=== PATIENT | female | born 1950 | race Caucasian/White ===

== ENCOUNTER 2025-02-16 22:41 | Inpatient (IN) | payer MEDICARE, SELFPAY ==
[2025-02-16] VITALS (14 sets, daily range): BP systolic 84–120; BP diastolic 37–63; BMI 37.5
[2025-02-16 16:54] LABS: Hematocrit 38.1 % (37.0-47.0); Hemoglobin 12.9 g/dL (12.0-16.0); Mean Corp Hgb Conc. 33.9 g/dL (33.0-37.0); Mean Corpuscular Volume 88.2 fL (81.0-99.0); Nucleated Red Blood Cells % 0 %; Platelet Count 291 10^3/uL (130-400); Red Cell Dist. Width 13.9 % (11.5-14.5)
[2025-02-16 17:08] LABS: ALT (SGPT) 25 U/L (0-35); AST (SGOT) 51 U/L (14-36); Albumin 4.2 g/dl (3.5-5.0); Alkaline Phosphatase 86 U/L (38-126); Blood Urea Nitrogen 19 mg/dl (7-17); Calcium 10.0 mg/dl (8.4-10.2); Carbon Dioxide 23 mmol/L (22-30); Chloride 103 mmol/L (98-107); Glucose 130 mg/dl (70-99); Potassium 3.5 mmol/L (3.5-5.1); Sodium 136 mmol/L (135-145); Total Protein 7.2 g/dl (6.3-8.2); eGFR 59.86
--- NOTE | 2025-02-16 17:20 | ED.GENMED ---
History of Present Illness
<Kendall Zheng PA-C - Last Filed: 02/16/25 23:28>
General
Chief Complaint: Weakness
Time Seen by Provider: 02/16/25 17:08
History of Present Illness
History of Present Illness:
74-year-old female with history of hyperlipidemia and Minor's thyroiditis presents to the emergency department for evaluation of severe weakness and urinary incontinence that began earlier this morning. States that she was unable to get herself
up off the floor for approximately 1 to 2 hours which resulted in her calling 911. She denies fevers but does have chills. She also reports right lower quadrant pain that began yesterday and worsened today. Denies nausea, vomiting, diarrhea,
coughing, or sore throat. No ill contacts at home. Prior abdominal surgical history includes appendectomy, cholecystectomy, total hysterectomy with hernia repair, and paraesophageal hernia repair
Past History
<Kendall Zheng PA-C - Last Filed: 02/16/25 23:28>
Past History
ED Past Medical History: HTN (HCTZ for edema)
ED Past Surgical History: Negative Cardiac
Social History
Tobacco: Non-smoker
Alcohol: None
Drug: None
Personal:
Living: with family
Employment: Employed
Family History
Family History: Other (Noncontributory)
Review of Systems
<Kendall Zheng PA-C - Last Filed: 02/16/25 23:28>
Review of Systems
Allergies reviewed?: Yes
All Other Systems: ROS reviewed and negative except as documented in HPI and ROS
Phy Exam
<Kendall Zheng PA-C - Last Filed: 02/16/25 23:28>
Physical Exam
Physical Exam:
GEN: Appears ill but in no distress
HEENT: Oral mucosa moist, no scleral icterus
Cardiac: Regular rate and rhythm, no murmur
Lung: No respiratory distress, no tachypnea, lungs clear to auscultation
Abdomen: Soft, significant right lower quadrant tenderness with no peritoneal signs or rigidity
MSK: No gross deformity or injuries
Skin: Good color, no pallor or jaundice, no rashes
Neuro: AO x3, moves all extremities freely
Psych: Calm, cooperative
Sepsis
<Kendall Zheng PA-C - Last Filed: 02/16/25 23:28>
Sepsis Screening
Sepsis Assessment: Septic Shock
Sepsis Screening: Lactate >/=4mmol/L
Sepsis Screen
Sepsis Screen: Septic Shock
Date: 02/16/25
Time: 16:50
Course
<Kendall Zheng PA-C - Last Filed: 02/16/25 23:28>
Orders/Labs/Results
Orders:
Orders
02/16/25 Breakfast
NPO
Allow oral meds: Yes
Allow clear liquids: 4hrs prior to procedure
NPO with Ice Chips: Yes
Comment: may have unrestricted clear liquid up to 4 hrs prior to scheduled procedure
02/16/25 16:40
ECG [Electrocardiogram (*1)] Urgent
Reason for Study: Fatigue / Weakness
02/16/25 16:47
Complete Blood Count/With Diff Urgent
Comprehensive Metabolic Panel Urgent
Creatine Phosphokinase Urgent
Erythrocyte Sed Rate Urgent
Lactic Acid Urgent
Blood Culture Urgent
BRENNEN Source: Blood/Venous
Specimen Description:
02/16/25 17:18
CT Abd/Pel (IV only)-DH only Urgent
Comment:
Reason For Exam: RLQ pain, sepsis
Straight cath- Treatment ONCE
02/16/25 17:19
0.9% Sodium Chloride 1000 ml [Nss] 2,600 ml IV BOLUS
02/16/25 18:23
COVID-19 Antigen Urgent
Source: Nasal Swab
Urinalysis Reflex To Culture Urgent
Date Specimen was Collected: 02/16/25
Time Specimen was Collected: 17:34
Urine Microscopic Reflex Cult Urgent
Blood Culture Urgent
BRENNEN Source: Blood/Venous
Specimen Description:
Influenza A+B Rapid Molecular Urgent
BRENNEN Source: Nasal Swab
Specimen Description:
Urine Culture Urgent
BRENNEN Source: U
Specimen Description:
Date Specimen was Collected: 02/16/25
Time Specimen was Collected: 17:34
02/16/25 18:42
CefTRIAXone [Rocephin] 1,000 mg IV NOW STA
02/16/25 22:25
Morphine Sulfate 2 mg IV NOW STA
02/16/25 22:28
Admit/Transfer Patient As Directed
Co-Sign Provider:
Level of Care: Inpatient admission
Assign to:: IMU- Intermediate Care
Physician / Group: Htay
Diagnosis: Sepsis, Pyelonephritis
Reason for Hospitalization: IVFs, IV abx, possible pressors
Expected length of stay greater than two midnights?: Yes
ELOS- Estimated Length of Stay in days: 3
I certify the patient meets the requirements for IP care: Yes
02/16/25 22:29
PRN Pain Medication Management As Directed
May give lesser potent ordered pain med per pt: Yes
preference::
Protocol:: Medication orders for pain may be administered in a
manner that supports deferring to patient preference
when the pt is:
- Requesting an ordered lesser potent pain medication.
Least to most potent pain medications are defined
as: acetaminophen < NSAID < tramadol < opioids
(morphine, oxycodone, hydromorphone).
- Requesting a lesser dose of the same medication IF
ORDERED.
- Requesting a less intrusive route of administration
if both routes are prescribed by the provider (PO <
IV).
02/16/25 22:30
Code Status As Directed
Resuscitation Status: Full Code
0.9% Sodium Chloride 1000 ml [Nss] 1,000 ml IV 120 mls/hr
02/16/25 22:45
Lactic Acid Stat
02/16/25 23:16
Acetaminophen [Tylenol] 650 mg PO Q4HPRN PRN
Morphine Sulfate 2 mg IV Q4HPRN PRN
Ondansetron Injectable [Zofran] 4 mg IV Q6HPRN PRN
02/16/25 23:16
UROLOGY CONSULT Routine
Consulting Provider: Elver Lanier
Was physician already notified: Yes
Activity As Directed
Activity Level: Out of Bed-Early Mobility
With Assistance
Bladder Scan As Directed
Follow Bladder Retention/Intermittent Cath Algorithm?: Yes
PRN if no void in __ hours: 6
Frequency: Per Retention Algorithm
If Bladder Scan Result >: 400
then:: Straight cath
I&O [Intake/ Output] As Directed
Frequency: q12h
Pneumatic Compression Sleeves As Directed
Type: Knee high
Straight Cath As Directed
Frequency: Per Retention Algorithm
Additional Instructions: straight cath as needed per acute urinary retention algorithm for 24 hrs
Additional Instructions: for bladder scan greater than 400 mL
Strain Urine As Directed
Vital Signs As Directed
Frequency: Per unit guidelines
DX Deep Vein Thrombosis Video Routine
02/17/25 02:30
Lactic Acid Q4H
Comment: repeat q4 hours x 4 or until less than 2 mmol/L
02/17/25 06:00
Basic Metabolic Panel IN AM
Complete Blood Count/No Diff IN AM
Levothyroxine [Synthroid] 100 mcg PO DAILY@0600
02/17/25 06:30
Lactic Acid Q4H
Comment: repeat q4 hours x 4 or until less than 2 mmol/L
02/17/25 08:00
Gabapentin [Neurontin] 300 mg PO QID
02/17/25 16:00
CefTRIAXone [Rocephin] 1,000 mg IV Q24H
02/17/25 18:00
Rosuvastatin Calcium [Crestor] 5 mg PO QPM
Abnormal Lab Results
02/16/25 02/16/25
16:47 18:23
WBC 21.2 H 10^3/uL
(4.8-10.8)
MPV 11.1 H fL
(7.4-10.4)
Abs Immat Gran (auto) 0.1 H 10^3/uL
(0-0.05)
Absolute Neuts (auto) 18.8 H 10^3/uL
(1.4-6.5)
Absolute Lymphs (auto) 0.8 L 10^3/uL
(1.2-3.4)
Absolute Monos (auto) 1.5 H 10^3/uL
(0.1-0.6)
Immature Gran % 0.7 H %
(0-0.5)
Neutrophils % 88.4 H %
(42.2-75.2)
Lymphocytes % 3.6 L %
(20.5-51.1)
BUN 19 H mg/dl
(7-17)
Glucose 130 H mg/dl
(70-99)
Lactic Acid 4.3 H* mmol/L
(0.7-2.0)
AST 51 H U/L
(14-36)
Urine Ketones 3+ A
(Negative)
Ur Occult Blood Reflex 3+ A
(Negative)
Leukocyte Esterase Rfl 3+ A
(Negative)
Urine RBC 3-6 A /HPF
(0-2)
Urine WBC (Reflex) 50-60 A /HPF
(0-5)
Urine Bacteria (Reflex) Many A
(Negative)
Urine Albumin (Reflex) 3+ A
(Neg - Trace)
02/16/25 16:47
02/16/25 16:47
Vital Signs
Initial and Last Documented VS:
Initial Vital Signs
Temp Pulse Resp BP Pulse Ox
98.0 F 105 20 84/63 92
02/16/25 16:38 02/16/25 16:38 02/16/25 16:38 02/16/25 16:38 02/16/25 16:38
Last Documented Vital Signs
Temp Pulse Resp BP Pulse Ox
99 F 75 11 108/43 100
02/16/25 23:01 02/16/25 23:00 02/16/25 23:00 02/16/25 22:41 02/16/25 19:45
<Magdaleno Starr, DO - Last Filed: 02/16/25 21:09>
Orders/Labs/Results
Orders:
Orders
02/16/25 Breakfast
NPO
Allow oral meds: Yes
Allow clear liquids: 4hrs prior to procedure
NPO with Ice Chips: Yes
Comment: may have unrestricted clear liquid up to 4 hrs prior to scheduled procedure
02/16/25 16:40
ECG [Electrocardiogram (*1)] Urgent
Reason for Study: Fatigue / Weakness
02/16/25 16:47
Complete Blood Count/With Diff Urgent
Comprehensive Metabolic Panel Urgent
Creatine Phosphokinase Urgent
Erythrocyte Sed Rate Urgent
Lactic Acid Urgent
Blood Culture Urgent
BRENNEN Source: Blood/Venous
Specimen Description:
02/16/25 17:18
CT Abd/Pel (IV only)-DH only Urgent
Comment:
Reason For Exam: RLQ pain, sepsis
Straight cath- Treatment ONCE
02/16/25 17:19
0.9% Sodium Chloride 1000 ml [Nss] 2,600 ml IV BOLUS
02/16/25 18:23
COVID-19 Antigen Urgent
Source: Nasal Swab
Urinalysis Reflex To Culture Urgent
Date Specimen was Collected: 02/16/25
Time Specimen was Collected: 17:34
Urine Microscopic Reflex Cult Urgent
Blood Culture Urgent
BRENNEN Source: Blood/Venous
Specimen Description:
Influenza A+B Rapid Molecular Urgent
BRENNEN Source: Nasal Swab
Specimen Description:
Urine Culture Urgent
BRENNEN Source: U
Specimen Description:
Date Specimen was Collected: 02/16/25
Time Specimen was Collected: 17:34
02/16/25 18:42
CefTRIAXone [Rocephin] 1,000 mg IV NOW STA
02/16/25 22:25
Morphine Sulfate 2 mg IV NOW STA
02/16/25 22:28
Admit/Transfer Patient As Directed
Co-Sign Provider:
Level of Care: Inpatient admission
Assign to:: IMU- Intermediate Care
Physician / Group: Htay
Diagnosis: Sepsis, Pyelonephritis
Reason for Hospitalization: IVFs, IV abx, possible pressors
Expected length of stay greater than two midnights?: Yes
ELOS- Estimated Length of Stay in days: 3
I certify the patient meets the requirements for IP care: Yes
02/16/25 22:29
PRN Pain Medication Management As Directed
May give lesser potent ordered pain med per pt: Yes
preference::
Protocol:: Medication orders for pain may be administered in a
manner that supports deferring to patient preference
when the pt is:
- Requesting an ordered lesser potent pain medication.
Least to most potent pain medications are defined
as: acetaminophen < NSAID < tramadol < opioids
(morphine, oxycodone, hydromorphone).
- Requesting a lesser dose of the same medication IF
ORDERED.
- Requesting a less intrusive route of administration
if both routes are prescribed by the provider (PO <
IV).
02/16/25 22:30
Code Status As Directed
Resuscitation Status: Full Code
0.9% Sodium Chloride 1000 ml [Nss] 1,000 ml IV 120 mls/hr
02/16/25 22:45
Lactic Acid Stat
02/16/25 23:16
Acetaminophen [Tylenol] 650 mg PO Q4HPRN PRN
Morphine Sulfate 2 mg IV Q4HPRN PRN
Ondansetron Injectable [Zofran] 4 mg IV Q6HPRN PRN
02/16/25 23:16
UROLOGY CONSULT Routine
Consulting Provider: Elver Lanier
Was physician already notified: Yes
Activity As Directed
Activity Level: Out of Bed-Early Mobility
With Assistance
Bladder Scan As Directed
Follow Bladder Retention/Intermittent Cath Algorithm?: Yes
PRN if no void in __ hours: 6
Frequency: Per Retention Algorithm
If Bladder Scan Result >: 400
then:: Straight cath
I&O [Intake/ Output] As Directed
Frequency: q12h
Pneumatic Compression Sleeves As Directed
Type: Knee high
Straight Cath As Directed
Frequency: Per Retention Algorithm
Additional Instructions: straight cath as needed per acute urinary retention algorithm for 24 hrs
Additional Instructions: for bladder scan greater than 400 mL
Strain Urine As Directed
Vital Signs As Directed
Frequency: Per unit guidelines
DX Deep Vein Thrombosis Video Routine
02/17/25 02:30
Lactic Acid Q4H
Comment: repeat q4 hours x 4 or until less than 2 mmol/L
02/17/25 06:00
Basic Metabolic Panel IN AM
Complete Blood Count/No Diff IN AM
Levothyroxine [Synthroid] 100 mcg PO DAILY@0600
02/17/25 06:30
Lactic Acid Q4H
Comment: repeat q4 hours x 4 or until less than 2 mmol/L
02/17/25 08:00
Gabapentin [Neurontin] 300 mg PO QID
02/17/25 16:00
CefTRIAXone [Rocephin] 1,000 mg IV Q24H
02/17/25 18:00
Rosuvastatin Calcium [Crestor] 5 mg PO QPM
Abnormal Lab Results
02/16/25 02/16/25
16:47 18:23
WBC 21.2 H 10^3/uL
(4.8-10.8)
MPV 11.1 H fL
(7.4-10.4)
Abs Immat Gran (auto) 0.1 H 10^3/uL
(0-0.05)
Absolute Neuts (auto) 18.8 H 10^3/uL
(1.4-6.5)
Absolute Lymphs (auto) 0.8 L 10^3/uL
(1.2-3.4)
Absolute Monos (auto) 1.5 H 10^3/uL
(0.1-0.6)
Immature Gran % 0.7 H %
(0-0.5)
Neutrophils % 88.4 H %
(42.2-75.2)
Lymphocytes % 3.6 L %
(20.5-51.1)
BUN 19 H mg/dl
(7-17)
Glucose 130 H mg/dl
(70-99)
Lactic Acid 4.3 H* mmol/L
(0.7-2.0)
AST 51 H U/L
(14-36)
Urine Ketones 3+ A
(Negative)
Ur Occult Blood Reflex 3+ A
(Negative)
Leukocyte Esterase Rfl 3+ A
(Negative)
Urine RBC 3-6 A /HPF
(0-2)
Urine WBC (Reflex) 50-60 A /HPF
(0-5)
Urine Bacteria (Reflex) Many A
(Negative)
Urine Albumin (Reflex) 3+ A
(Neg - Trace)
02/16/25 16:47
02/16/25 16:47
Vital Signs
Initial and Last Documented VS:
Initial Vital Signs
Temp Pulse Resp BP Pulse Ox
98.0 F 105 20 84/63 92
02/16/25 16:38 02/16/25 16:38 02/16/25 16:38 02/16/25 16:38 02/16/25 16:38
Last Documented Vital Signs
Temp Pulse Resp BP Pulse Ox
99 F 75 11 108/43 100
02/16/25 23:01 02/16/25 23:00 02/16/25 23:00 02/16/25 22:41 02/16/25 19:45
<Kendall Zheng PA-C - Last Filed: 02/16/25 23:28>
MDM/Problems Addressed
MDM/Problems Addressed:
Imaging does reveal bilateral UPJ stones however these are nonobstructing. I did discuss this with urology on-call who will see in consultation in the morning but no indication for stent placement. Patient clinically improved after IV fluid
resuscitation and IV antibiotics. Will be admitted due to septic shock with lactic acidosis due to UTI
<Kendall Zheng PA-C - Last Filed: 02/16/25 23:28>
Comment
Comment:
EKG independently interpreted by me shows normal sinus rhythm at a rate of [address] changes concerning for ischemia
*Pulse Oximetry
SaO2: 92
Oxygen Mode of Delivery: Room air
Patient hypoxic: no
*Critical Care Note
Total Time (30-74mins, 75-104mins- exclusive of procedures): 40 minutes
comment:
Critical care time: 40 minutes
Critical care time was exclusive of: Separately billable procedures, treating other patients, and teaching time
Critical care was necessary to treat or prevent imminent or life-threatening deterioration of the following conditions: Septic shock
Critical care time spent personally by me on the following activities:
[x] Review of old charts
[x]Obtaining history from patient or surrogate
[x] Ordering and review of the laboratory studies
[x] Ordering and review of radiographic studies
[x] Ordering and performing treatments and interventions
[x] Patient patient's response to treatment
[x] Development of treatment plan with patient or surrogate
ED Attending Note
<Kendall Zheng PA-C - Last Filed: 02/16/25 23:28>
-
Portions of this chart may have been created with voice recognition software.� Occasional wrong word or��sound alike� substitutions may have occurred due to the inherent limitations of voice recognition software.
<Magdaleno Starr DO - Last Filed: 02/16/25 21:09>
ED Attending Note
Patient seen and examined by attending physician: Yes
I performed the substantive portion of visit, reviewed & personally made and approve the management plan that is documented in note by myself or SUMEET.: Yes
ED Attending Note:
I evaluated the patient at bedside. The patient does report some abdominal discomfort on the right side and does have some abdominal tenderness on examination. CT currently pending. Leukocytosis is noted and she is tachycardic with lactic of 4.3.
IV fluids have been ordered. She currently has appropriate mental and is fairly well appearing.
Discharge Plan
Departure
Patient Disposition: Admit
Date of Disposition: 02/16/25
Time of Disposition: 21:26
Admit to: Med/Surg
Presentation/result/management discussed w/ accepting MD/DO: Hospitalist
Discharge Problem:
Acute pyelonephritis
Interventions
Interventions:
*Risk Screen - Suicide Last Done: 02/16/25 17:18
*General Assessment Last Done: 02/16/25 16:38
*Neglect/Abuse Screening Last Done: 02/16/25 17:18
*ED- Fall Risk Assessment Last Done: 02/16/25 17:18
ED- Cardiac Assessment Last Done: 02/16/25 17:18
ED- Neurological Assessment Last Done: 02/16/25 17:18
ED- Pulmonary Assessment Last Done: 02/16/25 17:18
[2025-02-16] MEDS: NSS 2600 IV (17:51)
[2025-02-16 18:37] LABS: Urine Character Slightly Cloudy (Clear)
[2025-02-16 18:49] LABS: Urine White Cell 50-60 /HPF (0-5)
[2025-02-16 18:57] LABS: COVID-19 Antigen Negative (Negative)
[2025-02-16] MEDS: ROCEPHIN 1000 MG IV (19:16)
--- NOTE | 2025-02-16 22:07 | HPS.HSE ---
Family Physician
-
Family Physician: Wally Farley
Chief Complaint
-
Weakness, Urinary Incontinence and Right Flank/Abdominal Pain
History of Present Illness
Patient is a 74 y/o female past medical history of hypertension, hyperlipidemia, thyroidism, chronic lower extremity edema, spinal stenosis and peripheral neuropathy who presents with weakness and urinary incontinence. Patient reports since this
lower morning she has felt extremely weak. She reports associated urinary incontinence which is not her normal. She reports right flank pain as well as right lower quadrant pain . She denies dysuria or hematuria. She denies fevers.
Medical History
Past Medical History
Past Medical History: Reports Other
Additional Past Medical History:
Minor's Thyroiditis
Essential Hypertension
Hyperlipidemia
Chronic Lower Extremity Edema
Spinal Stenosis
Peripheral Neuropathy
Past Surgical History: Reports Other
Additional Past Surgical History:
1956 tonsillectomy
1961 appendectomy
1983 D&C, cholecystectomy, abdominal exploratory for suspected peritonitis
1985 D&C
1992 RIGHT KNEE AND ANKLE ARTHROSCOPY
1993 RIGHT ankle reconstruction
1995 uterine fibroids /adhesions removed, C5-6 CERVICAL FUSION W/ BONE GRAFT
; right ankle arthroplasty, torn ligaments repair, reconstruction
1999 ankle broken and repair w/ pins & wires (pins later removed), removed neuroma left foot
2002 hysteroscopy/ laparotomy/d&C
2003 broke left ankle-3 places
2003 total hysterectomy including ovaries, hernia repair
2004 broke left ankle, hernia repair x2, bladder sling,
2005 left foot neuroma and none chips removed, additional left ankle joint clean up, left ankle severe sprain/hairline fracture
2007 LEFT FOOT BROKE, left arm /wrist distal breaks
2009 surgery to correct 3 external fixators; fixators later removed
2010 stress fracture of tibia and ton ligaments of right ankle
2011 Carpal tunnel release, right distal fibula fx,
2018 endoscopy, hernia repair
2020 - lap/robotic paraesophageal hernia repair
Social History
Tobacco: Non-smoker
Alcohol: Occasional (Few time a month)
Family History
Family History: Not pertinent
Allergies / Home Medications
Allergies reflects when Allergies were last updated in [facility].
Home Medications with original date entered in [facility]
Allergy/Medication List:
Allergies
Allergy/AdvReac Type Severity Reaction Status Date / Time
codeine Allergy Large Verified 02/16/25 16:38
Hives - ok
w/
oxycodone/hydrocodone
hydromorphone (From Dilaudid) Allergy makes Verified 02/16/25 16:38
hyper,
very
angry/upset,
and crazy,
confused
Penicillins Allergy Large Verified 02/16/25 16:38
Hives - as
a child
Home Medications
cetirizine 10 mg tablet 10 mg PO DAILY Allergies 03/14/19
ferrous sulfate 325 mg (65 mg iron) tablet (FeroSul) 325 mg PO MOFR Supplement 03/14/19
gabapentin 300 mg capsule 300 mg PO QID Neurological Condition 03/14/19
hydrochlorothiazide 25 mg tablet 25 mg PO DAILY Blood pressure 03/14/19
levothyroxine 100 mcg tablet 100 mcg PO DAILY AT 0700 Thyroid 03/14/19
rosuvastatin 5 mg tablet 5 mg PO QPM High cholesterol 10/13/19
glucosamine sulfate 500 mg tablet 500 mg PO DAILY Supplement 02/16/25
losartan 50 mg tablet 50 mg PO DAILY Blood Pressure 02/16/25
therapeutic multivitamin 1 tab PO DAILY Supplement 02/16/25
Review of Systems
-
A 12 point ROS was completed and negative except as noted: Yes
Constitutional: Denies Fever or Chills
Respiratory: Reports Trouble Breathing; Denies Cough
Cardiac: Denies Chest Pain or Palpitations
: Reports See HPI
Physical Exam
Vital Signs
Vital Signs
Temp Pulse Resp BP Pulse Ox
98.0 F 82 19 109/49 100
02/16/25 16:38 02/16/25 21:47 02/16/25 21:47 02/16/25 21:47 02/16/25 19:45
Physical Exam
General: Well Developed, Well Nourished and No Apparent Distress
HEENT: NormoCephalic, Anicteric, Moist mucous membranes and Atraumatic
Respiratory: Clear and Non Labored Respirations; No Wheezes, Rales or Rhonchi
Cardiac: S1/S2 and Regular Rhythm; No Murmur
GI: Soft and Tender (Right lower qquadrant)
Rectal: Deferred by Provider
Genito-urinary: Other (Positive right CVA tenderness)
Musculoskeletal: No Clubbing, No Cyanosis and No Edema
Skin: Warm and Dry; No Rash
Neuro: Awake, Alert, Oriented and Nonfocal/grossly intact
Psych: Calm
Laboratory Results
-
02/16/25 16:47
02/16/25 16:47
Laboratory Results
Lactic Acid 4.3 mmol/L (0.7-2.0) H* 02/16/25 16:47
Total Bilirubin 1.0 mg/dl (0.2-1.3) 02/16/25 16:47
AST 51 U/L (14-36) H 02/16/25 16:47
ALT 25 U/L (0-35) 02/16/25 16:47
Alkaline Phosphatase 86 U/L (38-126) 02/16/25 16:47
Abd/Pelvis CT Scan:
Small calculi at the bilateral ureteropelvic junctions. However, both appear to be nonobstructive with normal excretion of contrast into the bilateral ureters. Mild perinephric fat stranding, right greater than left. No definite striated
hypoenhancement to confirm pyelonephritis, but clinical correlation is recommended.
Data Reviewed
-
CT Scan: Report Reviewed by me
Lab Data: Labs Reviewed by me
Impression/Plan
-
Sepsis with lactic acidosis secondary to pyelonephritis/complicated UTI
-Admit to IMU for possible pressors
-Continue to trend lactic acid level
-Continue IVFs
-Continue ceftriaxone
-Await urine and blood cultures
Bilateral UPJ Stones, non-obstructive per CT scan
-Consult Urology
-Strain urine
-Will keep NPO for now pending urology evaluation
Minor's Thyroiditis
-Continue levothyroxine
Essential Hypertension
-Hold losartan due to current low blood pressure
Hyperlipidemia
-Continue rosuvastatin
Chronic Lower Extremity Edema
-Hold HCTZ
Spinal Stenosis / Peripheral Neuropathy
-Continue gabapentin
DVT proph: SCDs
Code Status: Full Code
--- NOTE | 2025-02-16 22:30 | W.PN.UPDATE ---
Update Note
Progress Note Update
This note serves as an addendum to the H&P by research program assistant Lucy DOWNS
HPI�
74M
PHX: hyperlipidemia and Minor's thyroiditis
Seen at ER:
- evaluation of severe weakness and urinary incontinence that began earlier this morning.
- she was unable to get herself up off the floor for approximately 1 to 2 hours which resulted in her calling 911.
- right lower quadrant pain that began yesterday and worsened today.
ROS
denies fevers but does have chills.
denies nausea, vomiting
Reviewed VS:
Temp Pulse Resp BP Pulse Ox
98.0 F 82 19 109/49 100
02/16/25 16:38 02/16/25 21:47 02/16/25 21:47 02/16/25 21:47 02/16/25 19:45
02/16/25
16:38 02/16/25
17:16
Blood pressure 84/63 119/47
PE
Gen: not toxic looking but tired and weak
HEENT: anicteric
Neck: supple
Lungs: CTA
Cor:RRR No ST
Suprapubic discomfort
: R CVA tenderness
CEO: AAO3
Relevant Data�
02/16/25
16:47
WBC 21.2 H
Immature Gran % 0.7 H
Neutrophils % 88.4 H
BUN 19 H
Creatinine 1.0
eGFR 59.86
Glucose 130 H
Lactic Acid 4.3 H*
Total Bilirubin 1.0
UA
02/16/25
18:23
Urine Clarity Slightly cloudy
Urine RBC 3-6 A
Urine WBC (Reflex) 50-60 A
Ur Squamous Epith Cells 11-15
Urine Bacteria (Reflex) Many A
SARS-CoV-2 Antigen Negative
BCx x 2 sent
EKG
NORMAL SINUS RHYTHM
INFERIOR INFARCT , AGE UNDETERMINED
ABNORMAL ECG
WHEN COMPARED WITH ECG OF 15-Oct-2019 06:08,
INFERIOR INFARCT IS NOW PRESENT
CT AP IV cont
- Small calculi at the bilateral ureteropelvic junctions.
- However, both appear to be nonobstructive with normal excretion of contrast into the bilateral ureters.
- Mild perinephric fat stranding, right greater than left.
- No definite striated hypoenhancement to confirm pyelonephritis, but clinical correlation is recommended.
ASSESSMENT & PLAN
Complicated UTI concern for R sided PN
Associated Sepsis ( LA 4.1) due to complicated UTI
Hypotension somewhat MAP > 65 after septic fluid NS 2.5
- Small calculi at the bilateral UPJ - non obstructive with normal excretion of contrast into the bilateral ureters.
- Mild perinephric fat stranding, right greater than lef
- BC x2 pending
- NPO p MN in case urology procedure is warranted
- Agree with IC CFTZ
- IV NS @ 120
- Morphing PRN analgesia
- PRN anti emetics
- Uro consulted
Mildly hypotensive due to sepsis
pHTN
- Hold Losartan
DVT Px: SCD
Full code
IMU
[2025-02-16] MEDS: MORPHINE SULFATE 2 MG IV (22:54)
[2025-02-16] MEDS: NSS 1000 IV (22:54)
[2025-02-17] VITALS (17 sets, daily range): BP systolic 94–131; BP diastolic 45–85
--- NOTE | 2025-02-17 01:26 | PTCARENOTE ---
assumed care of patient. pt is AAOx3, able to make needs known. VSS. 93% RA. c/o pain to right flank to right lower back, PRN pain meds given. pt was able to stand and pivot from the stretcher to the bed without issues, but does complain of slight
dizziness. per patient request because she used it the ER, PW in use. IV fluids infusing. NSR on the monitor. pt oriented to new room, call retana within reach, care ongoing.
[2025-02-17] MEDS: MORPHINE SULFATE 2 MG IV ×2 (05:04→09:16)
[2025-02-17] MEDS: SYNTHROID 100 MCG PO (05:04)
[2025-02-17] MEDS: NSS 1000 IV ×2 (05:05→17:19)
[2025-02-17 05:49] LABS: Hematocrit 31.1 % (37.0-47.0); Hemoglobin 10.1 g/dL (12.0-16.0); Mean Corp Hgb Conc. 32.5 g/dL (33.0-37.0); Mean Corpuscular Volume 91.5 fL (81.0-99.0); Platelet Count 207 10^3/uL (130-400); Red Cell Dist. Width 14.1 % (11.5-14.5)
[2025-02-17 06:22] LABS: Blood Urea Nitrogen 17 mg/dl (7-17); Calcium 8.2 mg/dl (8.4-10.2); Carbon Dioxide 26 mmol/L (22-30); Chloride 107 mmol/L (98-107); Estimated Creatinine Clearance 65 ml/min; Glucose 89 mg/dl (70-99); Potassium 3.4 mmol/L (3.5-5.1); Sodium 136 mmol/L (135-145); eGFR > 60.00
[2025-02-17] MEDS: NEURONTIN 300 MG PO ×4 (08:35→21:45)
--- NOTE | 2025-02-17 09:03 | W.PN.HOSP.TC ---
Today's Communication/Plan
-
Increase ceftriaxone to 2 g
Consult urology
Consult cardiology
Echocardiogram
Assessment / Plan
Assessment / Plan
Severe sepsis with lactic acidosis more than 4.0 secondary to right pyelonephritis/complicated UTI
-Hemodynamically stable. No fevers. Improving white count.
- Normalized lactic acid.
-Continue IVFs
-Continue ceftriaxone-increase the dose to 2 g
-Await urine and blood cultures
Bilateral UPJ Stones, non-obstructive per CT scan
- Will discuss with urology if any role for inpatient evaluation
-Strain urine
- Start on a diet
New onset of atrial fibrillation
Not in heart failure
Hemodynamically stable
Will give a as needed doses of p.o. Cardizem for now
Consult cardiology
Obtain echocardiogram
Hypokalemia-replete potassium
Minor's Thyroiditis
-Continue levothyroxine
Essential Hypertension
-Hold losartan due to current low blood pressure
Anemia-drop in H&H noted suspect hemodilution continue to follow.
Hyperlipidemia
-Continue rosuvastatin
Chronic Lower Extremity Edema
-Hold HCTZ
Spinal Stenosis / Peripheral Neuropathy
-Continue gabapentin
DVT proph: SCDs
Code Status: Full Code
Discussed with RN
Total time spent on today's encounter was 52 minutes which included time spent in counseling the patient/family regarding diagnosis and treatment plan as listed above, goals of care, and symptom management. Case was discussed with nursing staff,
specialists, and care coordinators/case management. All labs and imaging personally reviewed by me. Remainder the time spent in detailed review of previous records, lab data, imaging, and other medical provider documentation.
Anticipated Discharge: > 48 hours
Subjective/Interval History
-
Date of Service: February 17, 2025
Patient still with persistent right-sided abdominal pain and right flank pain.
Generally healthy lady.
Her symptoms were acute onset yesterday with abdominal pain on the right side with urinary incontinence.
She is now diagnosed with severe sepsis and right pyelo-. Denies prior history of UTIs or any recent changes with bladder function.
She also flipped into new A-fib. Denies any prior history of cardiac disease. No chest pain or shortness of breath or dizziness.
No nausea vomiting.
Objective Data
-
Labs:
Laboratory Results
02/17/25
05:01
WBC 14.9 H
Hgb 10.1 L D
Hct 31.1 L
Plt Count 207 D
Sodium 136
Potassium 3.4 L
Chloride 107
Carbon Dioxide 26
BUN 17
Creatinine 0.8
Glucose 89
Calcium 8.2 L D
Vital Signs:
Vital Signs
Temp Pulse Resp BP Pulse Ox
98.0 F 59 16 105/47 98
02/17/25 03:17 02/17/25 06:00 02/17/25 06:00 02/17/25 06:00 02/17/25 06:00
I&O
02/16/25 02/17/25 02/18/25
06:59 06:59 06:59
Intake Total 1120 / 1120
Balance 1120 / 1120
Physical Exam
-
General: No Apparent Distress
Respiratory: Clear to Auscultation and Non Labored Respirations; Negative Accessory Resp Muscle Use
Cardiac: S1/S2, Irregular Rhythm and Tachycardic
GI: Soft, Nondistended, Normal Bowel Sounds and Tender (Right upper quadrant and right middle quadrant)
Genito-urinary: Costovertebral Angle Tend (Right side)
Musculoskeletal: No Edema
Neuro: AO x 3
Psych: Calm
Data Reviewed
-
CT Scan: Report Reviewed by me (CT of the abdomen pelvis images)
Labs: Labs Reviewed by me
[2025-02-17] MEDS: TYLENOL 650 MG PO (09:15)
[2025-02-17] MEDS: CARDIZEM 30 MG PO (09:15)
[2025-02-17] MEDS: KCL 40 MEQ PO (09:15)
--- NOTE | 2025-02-17 09:31 | W.PN.URO.CBU ---
Today's Communication / Plan
-
to op room
Assessment / Plan
-
pt with bilateral stones and sepsis syndrome Discussed options. Pt and I agree for bilateral stent placement
Diagnosis
-
Date of Service: February 17, 2025
-
Patient Diagnosis:
rt pyelo with bilateral upj stones non obstructing and 21k wbc down to 15 k but rt colic
Post Op Day:
Subjective
-
feels poorly rigors no bladder pressure but rt colic
Objective
-
Vital Signs
Temp Pulse Resp BP Pulse Ox
100.3 F 125 16 107/85 98
02/17/25 07:00 02/17/25 09:15 02/17/25 06:00 02/17/25 09:15 02/17/25 06:00
Intake and Output
02/16/25 02/17/25 02/18/25
06:59 06:59 06:59
Intake Total 1120 / 1120
Balance 1120 / 1120
Intake:
Oral fluids 120 / 120
IV fluids (Total) 1000 / 1000
Other:
How many times incontinent 2
SATURATED amount urine
Laboratory Results
02/17/25 05:01
02/17/25 05:01
Review of Systems
-
Constitutional: Night Sweats and Chills
Abdomen/GI: Nausea
: Flank Pain and Incontinence
Physical Exam
-
General - well developed, well nourished, no acute distress
Chest - clear bilaterally
Abdomen - soft, non-tender, positive bowel sounds, no CVAT, no incisional pain or distention
Genitalia - normal
Rectal - normal
Skin - warm & dry with no rash
Neuro - AOx3, no motor deficits
Extremities - no clubbing, no cyanosis, no edema
Incision - clean, dry
Dressing - clean, dry, intact
Counseling
-
to op room
Care Review
Data Reviewed
Discussed with: Hospitalist and Nursing
CT Scan: Image Pers Reviewed
[2025-02-17 09:57] LABS: Magnesium 1.9 mg/dl (1.6-2.3)
--- NOTE | 2025-02-17 10:00 | PTCARENOTE ---
Patient AAOx3, c/o pain across back and R flank, see may. T 100.3 this AM, see may. Patient went into afib around 0730 and converted back to NSR around 0930. Asymptomatic, all other VSS, see may. Cardiology to see. Patient going for urinary stents
soon. Patient able to make needs known. Will closely monitor.
--- NOTE | 2025-02-17 10:26 | CON.CAR ---
Addendum entered and electronically signed by Dalton Hong MD 02/17/25 11:24:
I saw and evaluated the patient, and I provided the substantive portion of the medical decision making.
I reviewed and agree with the note by Ms Romero and it accurately reflects our care.
I personally performed the medical decision making of the this encounter and my assessment and plan is below:
AF RVR
- already self converted to NSR
- Eliquis when able
- Start metop 25 mg
- echo pending
Original Note:
Consultation
Consultation Request
Date/Time Consultation Requested: 02/17/2025 08:50
Date/Time Consultation Performed: 02/17/2025 10:30
Requesting Provider: Dr. Murillo
Performing Provider: NAMRATA Phelps for Dr. Hong
Reason for Consultation: Atrial fibrillation, new
Medical History
-
Chief Complaint: Weakness, urinary incontinence
History of Present Illness:
Ileana Vargas is a 74-year-old female with hypertension, dyslipidemia, Minor's thyroiditis, and DJD who presented to the emergency department last night with severe weakness. She endorsed associated urinary incontinence. She was unable to
get off the floor for 1 to 2 hours requiring her to call 911. She endorsed worsened right lower quadrant pain. She was admitted with sepsis in the setting of pyelonephritis/complicated UTI. Cardiology was consulted for paroxysmal atrial
fibrillation. She was in atrial fibrillation for about 2 hours. She was given diltiazem 30 mg. She is currently in sinus rhythm. She denied having any chest pain, shortness of breath, nor dizziness.
Past Medical History
Past Medical History: HTN, Hypercholesterolemia and Hypothyroidism
Past Surgical History: Appendectomy, Cholecystectomy, Gynecological (Total hysterectomy) and Orthopedic
Social History
Tobacco: Non-Smoker
Alcohol: Occasional
Employment: Retired
Family History
Family History: Reviewed & Not Pertinent
Allergies / Home Medications
Allergy/AdvReac Type Severity Reaction Status Date / Time
codeine Allergy Large Verified 02/16/25 16:38
Hives - ok
w/
oxycodone/hydrocodone
hydromorphone (From Dilaudid) Allergy makes Verified 02/16/25 16:38
hyper,
very
angry/upset,
and crazy,
confused
Penicillins Allergy Large Verified 02/16/25 16:38
Hives - as
a child
�Medication �Instructions �Recorded �Confirmed �Type
cetirizine 10 mg tablet 10 mg PO DAILY Allergies 03/14/19 02/16/25 History
ferrous sulfate 325 mg (65 mg 325 mg PO MOFR Supplement 03/14/19 02/16/25 History
iron) tablet (FeroSul)
gabapentin 300 mg capsule 300 mg PO QID Neurological 03/14/19 02/16/25 History
Condition
hydrochlorothiazide 25 mg tablet 25 mg PO DAILY Blood pressure 03/14/19 02/16/25 History
levothyroxine 100 mcg tablet 100 mcg PO DAILY AT 0700 Thyroid 03/14/19 02/16/25 History
rosuvastatin 5 mg tablet 5 mg PO QPM High cholesterol 10/13/19 02/16/25 History
glucosamine sulfate 500 mg tablet 500 mg PO DAILY Supplement 02/16/25 02/16/25 History
losartan 50 mg tablet 50 mg PO DAILY Blood Pressure 02/16/25 02/16/25 History
therapeutic multivitamin 1 tab PO DAILY Supplement 02/16/25 02/16/25 History
Review of Systems
-
History Source: Patient
All other systems: Negative unless noted
Constitutional: Fever and Fatigue
EENT: No Symptoms
Respiratory: No Symptoms
Cardiac: No Symptoms
Abdomen/GI: No Symptoms
: No Symptoms
Musculoskeletal: No Symptoms
Skin: No Symptoms
Neurological: No Symptoms
Endocrine: No Symptoms
Hematologic/Lymphatic: No Symptoms
Physical Exam
Vital Signs
Temp Pulse Resp BP Pulse Ox
100.3 F 125 16 107/85 98
02/17/25 07:00 02/17/25 09:15 02/17/25 06:00 02/17/25 09:15 02/17/25 06:00
Lab Results
02/17/25 05:01
02/17/25 05:01
Physical Exam
General: Well Developed, Well Nourished, No Apparent Distress and Comfortable
HEENT: Normocephalic, Anicteric and Moist Mucous Membranes
Respiratory: Clear and Non Labored Respirations
Cardiac: S1/S2 and Regular Rhythm; Negative Peripheral Edema
Breast: Deferred by me
GI: Soft, Non Tender, Non Distended and Normal Bowel Sounds
Rectal: Deferred by Provider
Genito-urinary: No Costovertebral Tender
Musculoskeletal: No Clubbing and No Cyanosis
Skin: Warm and Dry
Neuro: Awake and Alert
Hematologic/Lymphatic: No Lymphadenopathy
Psych: Calm
Impression / Plan
-
I/P: 74F with hypertension, dyslipidemia, Minor's thyroiditis, and DJD who presented to the emergency department last night with severe weakness. She endorsed associated urinary incontinence.
Outpatient decorator inspector: None
Severe sepsis in the setting of right pyelonephritis/complicated UTI
- Leukocytosis, lactic acidosis (4.3), and febrile
- On IV fluid, not requiring vasopressor support
- Cultures are pending, antibiotics per primary service
Paroxysmal atrial fibrillation
- Back in sinus rhythm, received diltiazem 30 mg x 1
- Oral Anticoagulation: None prior to arrival, hold initiation with UPJ stones, anticipate apixaban 5 mg twice daily
- [id number]: Score at least 3 (HTN, age 65-74, female gender)
- Outpatient JAYLEN eval
- Echocardiogram today
- TSH reflex to T4
Bilateral UPJ stones, urology following
Essential hypertension
- Losartan and HCTZ on hold in the setting of soft BP
Anemia, perhaps dilutional, no acute bleeding
Hypercholesterolemia, on rosuvastatin
Obesity, BMI 37, she would benefit from weight loss
Minor's thyroiditis, on levothyroxine
Data Reviewed
-
EKG: Report Reviewed by me
Radiology: Report Reviewed by me
Labs: Labs Reviewed by me
Old Records: Reviewed
--- NOTE | 2025-02-17 11:31 | W.IMMPOSTOP ---
Surgical Immed Post Op Note
-
Primary Surgeon:
lanette
Assisting Surgeon:
Pre-op Diagnosis:
UTI
bilateral ureteral stones
incontinence
Post-op Diagnosis:
same
Procedure Performed:
cysto, bilateral ureteral stent placement
Anesthesia Type:
gen
Specimen / Cultures:
none
Estimated Blood Loss:
1cc
Complications:
none
Operative Findings:
cystocele
no bladder mass/stone or fistula
bilateral stents placed- brown placed
to pacu in stable condition
--- NOTE | 2025-02-17 12:30 | PTCARENOTE ---
Received patient back from OR by bed. VSS. NSR. Patient with no pain. Upon prep for procedure OR staff noticed rash on patients chest, rash is on chest/abdomen and slightly on back of neck, patient with no discomfort, MD Murillo notified, antibiotics
switched. Patient awaiting lunch. Will closely monitor.
--- NOTE | 2025-02-17 16:55 | CM ---
I.A: Completed By COLUMBA Mustafa
Patient lives in a [address] with [address].
DME: None, and no VN/PT
PCP: Dr. Wally Farley
Pharmacy: [facility]
Patient has transport home when ready.
[2025-02-17] MEDS: CRESTOR 5 MG PO (17:18)
[2025-02-17] MEDS: LEVAQUIN 150 IV (17:18)
[2025-02-18] VITALS (10 sets, daily range): BP systolic 99–159; BP diastolic 47–74; PULSE 54; BMI 39.0
--- NOTE | 2025-02-18 01:04 | PTCARENOTE ---
Assumed care of Pt from day RN. Pt AAox3 able to make needs known. Pt has no complaints of pain at this time. Higgins in place, Pt appears to be tolerating well. Urine is mariann with redish clots and sediment. Vitals stable at this time. assessment
care as charted.
[2025-02-18] MEDS: NSS 1000 IV (02:53)
[2025-02-18] MEDS: TYLENOL 650 MG PO (03:11)
[2025-02-18] MEDS: ZOFRAN 4 MG IV (03:24)
[2025-02-18 04:04] LABS: Hematocrit 29.1 % (37.0-47.0); Hemoglobin 9.8 g/dL (12.0-16.0); Mean Corp Hgb Conc. 33.7 g/dL (33.0-37.0); Mean Corpuscular Volume 89.3 fL (81.0-99.0); Platelet Count 191 10^3/uL (130-400); Red Cell Dist. Width 13.9 % (11.5-14.5)
--- NOTE | 2025-02-18 04:21 | PTCARENOTE ---
Pt having some nausea over night,prn Zofran given. Pt having mild pain in right lower abd, prn Tylenol given. Pt HR becoming bradycardic at times into 40's. Pt asymptomatic, vitals stable at this time. SEISMIC COMPUTER made aware.
[2025-02-18] MEDS: SYNTHROID PO (07:00)
--- NOTE | 2025-02-18 08:41 | W.PN.URO.CBU ---
Today's Communication / Plan
-
remove brown please
Assessment / Plan
-
pt with bilateral stones and sepsis syndrome now s/p bilateral stents pt afebrile and hemodynamically stable ur cx pos for e coli blood cxs neg. Will remove brown and once medically stable may discharge on po abs. Pt aware to call
office to schedule definitive stone surgery
Diagnosis
-
Date of Service: February 18, 2025
-
Patient Diagnosis:
Post Op Day:
Patient Diagnosis:
rt pyelo with bilateral upj stones non obstructing and 21k wbc down to 12 today e coli in urine neg blood cxs
Post Op Day:
Subjective
-
improved no fever
Objective
-
Vital Signs
Temp Pulse Resp BP Pulse Ox
97.7 F 38 15 113/50 97
02/18/25 07:46 02/18/25 06:00 02/18/25 06:00 02/18/25 06:00 02/18/25 06:00
Intake and Output
02/17/25 02/18/25 02/19/25
06:59 06:59 06:59
Intake Total 1120 / 1120 1820 / 1820
Output Total 800 / 800
Balance 1120 / 1120 1020 / 1020
Intake:
Oral fluids 120 / 120 180 / 180
IV fluids (Total) 1000 / 1000 1640 / 1640
Normosal 200 / 200
Output:
Urine, Brown 800 / 800
Other:
How many times incontinent 2
SATURATED amount urine
Laboratory Results
02/18/25 03:20
02/17/25 05:01
Review of Systems
-
: Difficulty Voiding
Physical Exam
-
General - well developed, well nourished, no acute distress
Chest - clear bilaterally
Abdomen - soft, non-tender, positive bowel sounds, no CVAT, no incisional pain or distention
Genitalia - normal
Rectal - normal
Skin - warm & dry with no rash
Neuro - AOx3, no motor deficits
Extremities - no clubbing, no cyanosis, no edema
Incision - clean, dry
Dressing - clean, dry, intact
Counseling
-
remove brown please
Care Review
Data Reviewed
Discussed with: Nursing
CT Scan: Image Pers Reviewed
[2025-02-18] MEDS: NEURONTIN 300 MG PO ×4 (08:58→21:20)
--- NOTE | 2025-02-18 09:42 | W.PN.CD ---
Today's Communication / Plan
-
Start apixaban 5 mg twice daily when ok with medicine/urology
- Plan for at least 1 month and perhaps longer of Eliquis
Echocardiogram to be done today, review when available
She should see Dr. Hong in the office in 1 month
Cardiology will sign off
Impression / Plan
-
Background: 74F with hypertension, dyslipidemia, Minor's thyroiditis, and DJD who presented to the emergency department last night with severe weakness. She endorsed associated urinary incontinence. Found to have nephrolithiasis and
pyelonephritis. PAF with RVR noted.
Outpatient overhauler helper: None
Paroxysmal atrial fibrillation with RVR x1 => no awareness of AFib
- Rhythm: Still in sinus
- Oral Anticoagulation: None prior to arrival, hold initiation with UPJ stones, anticipate apixaban 5 mg twice daily for at least 1 month and perhaps longer
- [id number]: Score at least 3 (HTN, age 65-74, female gender)
- Outpatient JAYLEN eval
- Echocardiogram to be done today
- TSH => Normal
Abnormal EKG
- Criteria for IMI on ekg, will see what echo shows
- Dr. Hong may consider outpatient stress testing
Asymptomatic sinus bradycardia overnight and in 50s now
- I reviewed sinus and symptoms of bradycardia
- Observe
- No current indications for cardiac pacing
Right pyelonephritis/nephrolithiasis/complicated UTI
- IV ATBs
- Bilateral ureteral stents
- Per medicine and urology
Essential hypertension, stable
Anemia, perhaps dilutional, no acute bleeding
Hypercholesterolemia, on rosuvastatin
Obesity, BMI 37, she would benefit from weight loss
Minor's thyroiditis, on levothyroxine
Subjective:
Feels well.
Physical Exam
Vital Signs/Labs
Vital Signs
Temp Pulse Resp BP Pulse Ox
97.7 F 38 15 113/50 97
02/18/25 07:46 02/18/25 06:00 02/18/25 06:00 02/18/25 06:00 02/18/25 06:00
02/17/25 02/18/25 02/19/25
06:59 06:59 06:59
Actual Weight 89.9 kg
02/18/25 03:20
02/17/25 05:01
Magnesium 1.9 mg/dl (1.6-2.3) 02/17/25 05:01
Physical Exam
Constitutional: No acute distress
EENT: Anicteric
Cardiovascular: Rhythm & rate is regular and Pedal edema is absent
Respiratory: Respiratory effort normal and Lungs clear to auscul.
GI: Soft and Distention absent
Neuro/Psych: AO x 3
Data Reviewed
-
Date of Service: February 18, 2025
--- NOTE | 2025-02-18 13:14 | W.PN.HOSP.TC ---
Addendum entered and electronically signed by Nirav Murillo MD 02/18/25 15:38:
DOAC cost was prohibitive. Eliquis was for $435.08.
Pradaxa was $54 which is okay. I will switch anticoagulation to Pradaxa 150 mg twice daily.
Original Note:
Today's Communication/Plan
-
DC
Assessment / Plan
Assessment / Plan
Severe sepsis with lactic acidosis more than 4.0 secondary to right pyelonephritis/complicated UTI
E. coli in the urine. Blood cultures negative so far.
-Hemodynamically stable. No fevers. Improving white count.
- Normalized lactic acid.
-Continue antibiotics-switch to quinolones as patient developed Rash while on ceftriaxone
- Clinically improved with resolution of abdominal pain tolerating diet
Bilateral UPJ Stones, non-obstructive per CT scan
- Status post bilateral ureteral stent placement without complications.
- Resolved abdominal and right flank pain.
New onset of atrial fibrillation
Not in heart failure
Hemodynamically stable
Transient. Now in sinus rhythm.
Appreciate cardiology input who recommends Eliquis for stroke prophylaxis.
Echo shows normal EF with mildly dilated right ventricle but the right ventricular function is normal.
Minor's Thyroiditis
-Continue levothyroxine
Essential Hypertension
- Resume losartan on discharge
Anemia-drop in H&H noted suspect hemodilution . Stable H&H
Hyperlipidemia
-Continue rosuvastatin
Chronic Lower Extremity Edema
-Hold HCTZ till reviewed again by PCP.
Spinal Stenosis / Peripheral Neuropathy
-Continue gabapentin
DVT proph: SCDs
Code Status: Full Code
Discussed with RN
Will obtain PT eval and if stable on her feet will discharge her home today.
Anticipated Discharge: Today
Subjective/Interval History
-
Date of Service: February 18, 2025
Resolved abdominal pain and flank pain. No incontinence of urine.
Denies any nausea vomiting. No fever or chills.
Denies any chest pain or shortness of breath. No dizziness.
Feels better.
She developed rash in the back of the neck and chest yesterday. Not itchy. Resolved now.
She does not remember taking ceftriaxone before. She is allergic to penicillin which causes her rash and hives.
Objective Data
-
Labs:
Laboratory Results
02/18/25
03:20
WBC 12.3 H
Hgb 9.8 L
Hct 29.1 L
Plt Count 191
Vital Signs:
Vital Signs
Temp Pulse Resp BP Pulse Ox
98.1 F 71 17 145/59 94
02/18/25 11:24 02/18/25 12:00 02/18/25 08:00 02/18/25 11:36 02/18/25 11:01
I&O
02/17/25 02/18/25 02/19/25
06:59 06:59 06:59
Intake Total 1120 / 1120 1820 / 1820 540 / 540
Output Total 800 / 800 500 / 500
Balance 1120 / 1120 1020 / 1020 40 / 40
Physical Exam
-
General: Comfortable
Respiratory: Clear to Auscultation and Non Labored Respirations; Negative Accessory Resp Muscle Use
Cardiac: Regular Rhythm and S1/S2; Negative Tachycardic
GI: Soft, Nontender, Nondistended and Normal Bowel Sounds
Genito-urinary: No Costovertebral Tender
Skin: Rash (Had maculopapular rash on her chest and side of the chest - on the picture which was TT to me by RN)
Neuro: AO x 3
Psych: Calm
Data Reviewed
-
Labs: Labs Reviewed by me
--- NOTE | 2025-02-18 13:19 | W.DCSUMMARY ---
Addendum entered and electronically signed by Nirav Murillo MD 02/19/25 12:02:
Discharge; 02/19/2025
Patient stayed overnight as she wanted to stay 1 more night to make sure. She also wanted to go on Coumadin for anticoagulation. DOACs were cost prohibitive. Pradaxa was $54 but still wanted to be on Coumadin for cost reasons. Discussed about
how to take Coumadin, INR testing and recommended diet interactions. She is comfortable with Coumadin as some of her friends are on Coumadin.
No overnight events. This morning she had a brief A-fib episode which spontaneously reverted to sinus rhythm. No indication for rate control medication at this point. Continue with anticoagulation follow-up with cardiology as outpatient.
Original Note:
Discharge Summary
Discharge Data
Date of Admission: 02/16/25
Date of Discharge: 02/18/25
-
Pending Results: No
Hospital Course
Primary diagnosis:
Severe sepsis with lactic acidosis more than 4.0 secondary to right pyelonephritis/complicated urinary tract infection
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
E. coli in the urine
Transient new onset of atrial fibrillation
Rash secondary to ceftriaxone
Secondary diagnosis:
Minor's thyroiditis
Essential hypertension
Hyperlipidemia
Spinal stenosis/peripheral neuropathy
Chronic lower extremity edema
Hospital course:
Patient presented with acute onset of abdominal pain and right-sided flank pain along with urinary incontinence and discovered to have severe sepsis with lactic acid more than 4. CT imaging was showing bilateral UP junction stones which were
nonobstructive and also perinephric stranding in the right kidney concerning for pyelonephritis.
She was put on antibiotics fluids with normalization of lactic acid and improvement of clinical syndrome. She was seen by urology and who placed bilateral ureteral stent with resolution of his abdominal pain. White count also improved. Urine
culture grew E. coli which is pansensitive. While she was on ceftriaxone she developed maculopapular rash which resolved with discontinuation. Antibiotics were switched to quinolones and on discharge patient was put on ciprofloxacin.
While she was sick with sepsis she also had a transient new onset of atrial fibrillation. No heart failure. She spontaneously converted to sinus rhythm. Was seen by cardiology who recommended Eliquis for stroke prophylaxis. Echo showed normal EF
with mildly dilated right ventricular but right ventricular function was normal.
She was seen by PT prior to discharge.
Consultants on board:
Urology-Dr. Chato Lanier
Cardiology-Dr. Lewis Grigsby
Portions of this chart may have been created with voice recognition software. Occasional wrong word or 'sound alike' substitutions may have occurred due to the inherent limitations of voice recognition software.
Discharge Plan
-
Patient Disposition: Home (Routine Discharge)
Discharge Diagnosis/Procedures: Right pyelonephritis with bilateral ureteropelvic junction stone without obstruction. Status post bilateral ureteral stent placement. E. coli in the urine.
Diet: Regular
Activity: As tolerated
Driving Restrictions: Not until seen by your Dr
Blood Work: CBC blood work in one week -arrange through your PCP
Referrals:
Wally Farley MD [Family Provider, Family Practice] - in less than 1 week
Elver Lanier MD [Active, Urology]
Referral Note: you have stents and stones in each kidney Expect blood in urine and urinary frequency and urgency and occasional flank pain on voiding Call Dr Lanier [phone][ urology ]to set up stone surgery
Dalton Hong MD [Active, Cardiology] - in four to six weeks
Prescriptions:
New
acetaminophen 325 mg Tablet
650 mg PO Q4HPRN PRN (Reason: mild pain/ fever>100.5F) Qty: 1 0RF
ciprofloxacin HCl 500 mg tablet
500 mg PO BID Qty: 20 0RF
Eliquis 5 mg tablet
5 mg PO BID Qty: 60 0RF
Continued
cetirizine 10 MG tablet
10 mg PO DAILY
levothyroxine 100 MCG tablet
100 mcg PO DAILY AT 0700
ferrous sulfate [FeroSul] 325 MG tablet
325 mg PO MOFR
gabapentin 300 MG capsule
300 mg PO QID
rosuvastatin 5 MG tablet
5 mg PO QPM
losartan 50 mg Tablet
50 mg PO DAILY
glucosamine sulfate 500 mg Tablet
500 mg PO DAILY
therapeutic multivitamin Tablet
1 tab PO DAILY
Held
hydrochlorothiazide 25 MG tablet
25 mg PO DAILY
Hold Instructions: Resume on 02/25/25. till seen by PCP
Discharge Orders:
Discharge Patient (As Directed); Ordered 02/18/25
Ordered By: Nirav Murillo
Discharge Date and Time
Print Language: GREENLANDIC
--- NOTE | 2025-02-18 16:02 | CM ---
F/U: Priced Eliquis- $435.00, then Xarelto- $154.00, then Pradaxa- $54. The patient does not want to take this, only wants Warfrin so COLUMBA Mustafa asked Hospitalist to talk with her. IMM completed. PLAN: Anticipate Home No Needs.
--- NOTE | 2025-02-18 16:33 | PTCARENOTE ---
Higgins removed, DTV met. OOB to chair. Assist x1 to bathroom and OOB. pt d/c cancelled, unable to get ride and blood thinner being changed to Pradaxa. good appetite.
[2025-02-18] MEDS: COUMADIN 5 MG PO (17:28)
[2025-02-18] MEDS: LEVAQUIN IV (17:28)
[2025-02-18] MEDS: CRESTOR 5 MG PO (17:29)
[2025-02-18] MEDS: CIPRO 500 MG PO (19:58)
--- NOTE | 2025-02-18 20:30 | PTCARENOTE ---
Resumed care of pt sitting up in bed AAOx3. Pt pleasant and cooperative with care. HR in the 40's SB with prolonged QT on the monitor. POX 96% on RA. Lungs clear. +bowel, round obese abd. Pt ambulatory to bathroom independently when needed. Pt
denies any complaints at this time. Pt informed of transfer off of IMU due to Telemetry status. No issues to report at this time. Will continue to monitor.
--- NOTE | 2025-02-18 22:18 | PTCARENOTE ---
Report called to [facility] on to resume care. Pt transferred via wheelchair, all belongings with pt.
[2025-02-19 03:00] VITALS: BP 150/72
[2025-02-19] MEDS: SYNTHROID 100 MCG PO (05:47)
[2025-02-19 07:51] LABS: Hematocrit 30.6 % (37.0-47.0); Hemoglobin 10.2 g/dL (12.0-16.0); Mean Corp Hgb Conc. 33.3 g/dL (33.0-37.0); Mean Corpuscular Volume 91.1 fL (81.0-99.0); Platelet Count 271 10^3/uL (130-400); Red Cell Dist. Width 14.3 % (11.5-14.5)
[2025-02-19 07:57] VITALS: BP 137/59
[2025-02-19 07:57] LABS: INR 1.18; PT 15.5 Sec (11.4-14.6)
[2025-02-19] MEDS: NEURONTIN 300 MG PO (08:32)
[2025-02-19] MEDS: CIPRO 500 MG PO (08:32)
--- NOTE | 2025-02-19 09:03 | CM ---
Discharge home today, no needs
Has transportation home
--- NOTE | 2025-02-19 09:20 | PTCARENOTE ---
Dr. Murillo made aware pt. HR 140s in Afib with ambulation. Pt. converted back to NSR, 90s, after resting in bed for a few minutes in bed. Dr. Murillo okay to still discharge pt.
--- NOTE | 2025-02-19 12:03 | W.PN.HOSP.TC ---
Today's Communication/Plan
-
dc
Assessment / Plan
Assessment / Plan
Severe sepsis with lactic acidosis more than 4.0 secondary to right pyelonephritis/complicated UTI
E. coli in the urine. Blood cultures negative so far.
-Hemodynamically stable. No fevers. Improving white count. Slight bump up in white count Noted but no fever and continues to feel better..
- Normalized lactic acid.
-Continue antibiotics-switch to quinolones as patient developed Rash while on ceftriaxone
- Clinically improved with resolution of abdominal pain tolerating diet
Bilateral UPJ Stones, non-obstructive per CT scan
- Status post bilateral ureteral stent placement without complications.
- Resolved abdominal and right flank pain.
New onset of atrial fibrillation
Not in heart failure
Hemodynamically stable
Had a brief episode again this morning but quickly converted to sinus rhythm. Bradycardia at times noted. Asymptomatic. No indication for rate control at this time.
Appreciate cardiology input who recommends anticoagulation for stroke prophylaxis. Patient preferred Coumadin as anticoagulant. Discussed about INR checks and follow-up
Echo shows normal EF with mildly dilated right ventricle but the right ventricular function is normal.
Minor's Thyroiditis
-Continue levothyroxine
Essential Hypertension
- Resume losartan on discharge
Anemia-drop in H&H noted suspect hemodilution . Stable H&H
Hyperlipidemia
-Continue rosuvastatin
Chronic Lower Extremity Edema
-Hold HCTZ till reviewed again by PCP.
Spinal Stenosis / Peripheral Neuropathy
-Continue gabapentin
DVT proph: SCDs
Code Status: Full Code
Discussed with RN
Medically stable for discharge
Anticipated Discharge: Today
Subjective/Interval History
-
Date of Service: February 19, 2025
No urinary incontinence further. No abdominal or flank pain. No nausea vomiting. Tolerating diet. No fever chills.
Objective Data
-
Labs:
Laboratory Results
02/19/25
07:01
WBC 14.8 H
Hgb 10.2 L
Hct 30.6 L
Plt Count 271 D
PT 15.5 H
INR 1.18
Vital Signs:
Vital Signs
Temp Pulse Resp BP Pulse Ox
97.5 F 50 18 137/59 97
02/19/25 07:57 02/19/25 07:57 02/19/25 07:57 02/19/25 07:57 02/19/25 07:57
I&O
02/18/25 02/19/25 02/20/25
06:59 06:59 06:59
Intake Total 1820 / 1820 540 / 540
Output Total 800 / 800 900 / 900
Balance 1020 / 1020 -360 / -360
Physical Exam
-
General: Well Nourished
HEENT: Moist Mucous Membranes
Respiratory: Clear to Auscultation and Non Labored Respirations; Negative Accessory Resp Muscle Use
Cardiac: Regular Rhythm and S1/S2; Negative Tachycardic
GI: Soft, Nontender, Nondistended and Normal Bowel Sounds
Genito-urinary: No Costovertebral Tender
Neuro: AO x 3
Psych: Calm
Data Reviewed
-
Labs: Labs Reviewed by me
== END 2025-02-19 10:06 | disposition home or self-care (01) | DRG 854 ==
LOC: 4 EAST ACU 22:41
PROVIDERS: Emergency Medicine; Physician Assistant; Physician Assistant Medical; Specialist; ADMITTING PHYSICIAN Internal Medicine; ATTENDING PHYSICIAN Internal Medicine; CONSULT PHYSICIAN Internal Medicine Cardiovascular Disease; CONSULT PHYSICIAN Specialist; EMERGENCY PHYSICIAN Emergency Medicine; FAMILY PHYSICIAN Family Medicine
PROC: 0T788DZ Dilation of Bilateral Ureters with Intraluminal Device, Via Natural or Artificial Opening Endoscopic (ICD-10-PCS; 2025-02-17)
DX: A41.9 Sepsis, unspecified organism (principal); E87.20 Acidosis, unspecified; N10 Acute pyelonephritis; N20.1 Calculus of ureter; Z11.52 Encounter for screening for COVID-19; N99.3 Prolapse of vaginal vault after hysterectomy; R65.20 Severe sepsis without septic shock; I48.91 Unspecified atrial fibrillation; E06.3 Autoimmune thyroiditis; I11.9 Hypertensive heart disease without heart failure; Z79.01 Long term (current) use of anticoagulants; Z79.899 Other long term (current) drug therapy
CPT/HCPCS: 74018; 74177; 76000; 80048; 80053; 81003; 81015; 82550; 83605; 83735; 84443; 85025; 85027; 85610; 85652; 87040; 87086; 87088; 87186; 87502; 87811; 93005; 93306; 97116; 97162; A4300; Q9967

== ENCOUNTER 2025-03-10 06:43 | Day surgery (SDC) | payer MEDICARE, SELFPAY ==
[2025-03-10] VITALS (7 sets, daily range): BP systolic 143–170; BP diastolic 68–79; BMI 36.0
[2025-03-10] MEDS: NORMOSOL-R/PLASMALYTE-A 1000 IV (14:01)
[2025-03-10] MEDS: TYLENOL 650 MG PO (16:55)
== END 2025-03-10 17:05 | disposition home or self-care (01) ==
LOC: SDS 06:43
PROVIDERS: ATTENDING PHYSICIAN Specialist; FAMILY PHYSICIAN Physician Assistant
DX: N17.9 Acute kidney failure, unspecified (principal); N20.2 Calculus of kidney with calculus of ureter; Z98.890 Other specified postprocedural states
CPT/HCPCS: 52356; 74018; 76000; 82365